=== PATIENT | female | born 1940 | race Caucasian/White ===

== ENCOUNTER → 2016-07-31 | Outpatient (CLI) | payer MEDICARE, BC ==
[~2016-07-31] MED LIST: ASPIRIN LO-DOSE81 MG PO; AVAPRO300 MG PO; BACTROBAN 2% OI22 GM TOP; CALCIUM 600 +1 EAC6 PO; DULCOLAX STOOL100 MG PO; FOSAMAX70 MG PO; KEFLEX500 MG PO; NEURONTIN800 MG PO; PRESERVISION A1 EACH PO; ULTRAM50 MG PO; VITAMIN C WIT1000 MG PO
== END | disposition disaster alternative care site (69) ==
LOC: GRAD 14:25
DX: M51.04 Intervertebral disc disorders with myelopathy, thoracic region (principal); J43.9 Emphysema, unspecified; M40.204 Unspecified kyphosis, thoracic region

== ENCOUNTER 2016-08-16 13:00 | Inpatient (IN) | payer MEDICARE, BC ==
[~2016-08-16] VITALS: Ht 157.5 cm; Wt 53.2 kg
--- NOTE | ~2016-08-16 | DS ---
PATIENT'S NAME: TANESHA LEI [facility] AGE: 76 Y [address] ROOM: [place] [address] LOCATION: GPCU ADMIT DATE: 08/23/2016 Discharge Summary DISCHARGE DATE: 08/31/2016 FAMILY PHYSICIAN: Duncan Cortez MD ATTENDING PHYSICIAN: Juan Alberto Villa ADMIT DIAGNOSES: 1. Thoracic spinal stenosis. 2. Thoracic herniated nucleus pulposus. 3. Thoracic myelomalacia. 4. Myelopathy. 5. Thoracic degenerative disk disease. 6. Thoracic pain. 7. Hypertension. 8. Osteoporosis. 9. Gait instability (ataxia). 10. Chronic pain. DISCHARGE DIAGNOSES: 1. Thoracic spinal stenosis. 2. Thoracic herniated nucleus pulposus. 3. Thoracic myelomalacia. 4. Myelopathy. 5. Thoracic degenerative disk disease. 6. Thoracic pain. 7. Hypertension. 8. Osteoporosis. 9. Gait instability (ataxia). 10. Chronic pain. PROCEDURES PERFORMED: Anteroposterior thoracic fusion with interbody bone graft, anterior plate fixation with posterior pedicle screw instrumentation from T1-T4 with posterolateral fusion. HISTORY OF PRESENT ILLNESS: Tanesha is a 76-year-old female, who has been followed in our clinic for conservative treatment of multiple pain issues related to her neck, mid back, and her lumbar spine. She had previously undergone lumbar spine operations. There was noted thoracic herniation from years ago, that was being followed conservatively. The patient began to experience ataxic gait and other myelopathic changes on her exam. Her neck was re-imaged, which showed increased size in thoracic disk herniation at T2- 3, which was resulting in critically severe compression of her spinal cord with myelomalacia, and thus, the resultant myelopathic changes on her exam. At which point, it was discussed with the patient necessity to move forward with thoracic decompression and fusion at that area to prevent any further PATIENT'S NAME: TANESHA LEI [facility] AGE: 76 Y [address] ROOM: [place] [address] LOCATION: GPCU ADMIT DATE: 08/23/2016 Discharge Summary DISCHARGE DATE: 08/31/2016 FAMILY PHYSICIAN: Duncan Cortez MD ATTENDING PHYSICIAN: Juan Alberto Villa deterioration in her neurologic status including the myelopathic changes. The patient understood and consented to proceed with the surgery. This was done in conjunction with Dr. Stevens for access anteriorly through the mediastinum. HOSPITAL COURSE: The patient was admitted through same-day surgery, underwent the above-stated procedure, was recovered in the PACU. At which point, she showed quick deterioration in her health status. Given the 4 L blood loss, she was given blood transfusion with platelets, FFP among other clotting and blood products. The patient did show improvement and eventually was transferred to PCU in stable condition. During her hospital stay, she has not required further blood transfusions. There were issues with pain control throughout her hospital stay as well as her ability to participate in physical therapy as following surgery she noted significant weakness in her right leg. She has full function, strength in her left leg, which remained fairly unchanged throughout her hospital course. She had no activity of her hip or quad. She had minimal activity in her tibialis anterior, EHL, and gastrocnemius graded at 1/5, 2/5, and 2/5 respectively. The patient was initially treated with IV pain medication and narcotics. She was eventually transitioned to just tramadol and eventually did require fentanyl pain patch 25 mcg, which did eventually provide adequate pain relief. The patient's Jj catheter was removed on postop day one. She was not closely monitored in her voiding and went almost 24 hours without void at which point, Jj catheter was replaced, and a consult was made with Urology. The patient eventually underwent removal of her Jj with postvoid trial. She did do well and eventually was without Jj catheter and voiding on her own. She was able to pass gas and have minimal bowel movements while inpatient. Her drain was removed on postop day 2 as drainage was minimal. Her incisions were all clean, dry, and intact with no signs of infection. Upon discharge, her hemoglobin and hematocrit were stable. She did have again initial episode of delirium, most likely secondary to the significant blood loss as well as narcotics. Upon stabilization of her blood levels as well as changing her pain medication, the postop delirium resolved. She was afebrile throughout hospital course. Vital signs were essentially stable. We initially were planning on the patient to be transferred to [facility], but because of the patient's pain as well as limited mobility with her right leg weakness, she was not able to participate in two hours or greater of physical therapy, at which point, Swing Bed in [place] was initiated. She has been cleared by the Hospitalist as well as cardiothoracic surgeon for transfer today on 08/31/2016. We will address next week regarding postop followup with Dr. Villa. I did discuss this with the patient and her daughter. DISCHARGE INSTRUCTIONS: The patient is discharged to [facility] with postop restrictions of no lifting greater than 5 pounds, use of her brace at all times, care for incision and dressings. She will continue on her tramadol and her 25 mcg fentanyl patch. PATIENT'S NAME: TANESHA LEI [facility] AGE: 76 Y [address] ROOM: [place] [address] [facility]: [facility] ADMIT DATE: 08/23/2016 Discharge Summary DISCHARGE DATE: 08/31/2016 FAMILY PHYSICIAN: Duncan Cortez MD ATTENDING PHYSICIAN: Juan Alberto Villa MARQUIS FOLEY FOR JUAN ALBERTO VILLA MD JTF/modl /[id number] d: 09/01/16 0356 t: 09/19/16 1114, DISCHARGE SUMMARY
--- NOTE | ~2016-08-16 | OR ---
PATIENT'S NAME: QUIQUE [facility] AGE: 76 Y [address] ROOM: [place] [address] LOCATION: GICU ADMIT DATE: 08/23/2016 OR/Procedure Report DISCHARGE DATE: FAMILY PHYSICIAN: Duncan Cortez MD ATTENDING PHYSICIAN: Cedrick Villa SURGEON: Cedrick Villa MD ASSISTANT OFFSET PRESS OPERATOR: DATE OF PROCEDURE: 08/23/2016 PREOPERATIVE DIAGNOSES: 1. Thoracic degenerative disk disease. 2. Thoracic herniated disk. 3. Thoracic stenosis. 4. Thoracic myelopathy. 5. Thoracic radiculopathy. POSTOPERATIVE DIAGNOSES: 1. Thoracic degenerative disk disease. 2. Thoracic herniated disk. 3. Thoracic stenosis. 4. Thoracic myelopathy. 5. Thoracic radiculopathy. PROCEDURES PERFORMED: 1. Anterior thoracic decompression with partial corpectomy of T2 and T3 with disk excision and spinal cord decompression. 2. Anterior thoracic fusion, T2-3. 3. Application of allograft structural bone, T2-3 interspace. 4. Application of anterior plate screw instrumentation, T2-T3. 5. Posterior thoracic fusion, T1-T2. 6. Posterior thoracic fusion, T2-T3. 7. Posterior thoracic fusion, T3-T4. 8. Application of segmental pedicle screw fixation, T1 and T4 bilateral rods. CO-SURGEON: Pito Stevens DO, for the anterior aspect. TECHNICAL RESEARCH SCIENTIST: MARQUIS Del Rosario ANESTHESIA: General. ESTIMATED BLOOD LOSS: 4200 mL. COMPLICATIONS: None. PATIENT'S NAME: LEI, [facility] AGE: 76 Y [address] ROOM: [id number] [place] [address] LOCATION: [facility] ADMIT DATE: 08/23/2016 OR/Procedure Report DISCHARGE DATE: FAMILY PHYSICIAN: Duncan Cortez MD ATTENDING PHYSICIAN: Cedrick Villa SPECIMENS: None. FINDINGS: Huge calcified herniated disk with severe stenosis, T2-T3. INSTRUMENTATION USED: Homer Tempus anterior plate screw construct and Globus CREO pedicle screw fixation posteriorly. OPERATIVE INDICATIONS: The patient is a 76-year-old female who I have followed for symptomatic thoracic herniation and severe stenosis, resulting in progressive myelopathy and weakness. The patient was offered surgery from anterior and possible posterior approach to decompress and stabilize the area. After details, risks, benefits, and options were explained, she freely consented to surgery. OPERATIVE NARRATIVE: After the patient was correctly identified, operative site initialed, she was taken back to the operating room, placed in the supine position. After general anesthesia was induced, she was placed in a chin coon traction with all bony prominences well-padded and protected. She received IV antibiotics prior to surgery. The anterior neck and chest wall were prepped and draped in usual sterile fashion. Dr. Stevens provided the sternotomy and anterior exposure through the transthoracic region into the anterior thoracic spine. After exposure was completed, a spinal needle was placed into the disk space and verified on fluoroscopy at T2-3. This area was marked and self-retaining tractors were placed in the wound. Partial corpectomy was performed of the inferior aspect of T2 and the superior aspect of T3. A high-speed bur and Kerrisons were used to debride bone and disk tissue back to the posterior ligament. The large posterior herniated disk that was calcified was thinned with a high-speed bur and then teased free with a nerve hook and grasped and removed with micropituitaries and 1-mm tip Kerrisons. After decompression was complete, the arm was brought in for scan to verify decompression. There was osteophyte present in the left posterolateral aspect of the disk space up under the inferior part of T2. This was identified, teased free, and then removed. The area was completely decompressed at this point. Gelfoam was packed in the epidural space temporarily for hemostasis. Next, the end plates were smoothed and prepared for fusion. A size 12 cortical cancellous bone graft was packed with DBM in the central part and then impacted into the intervertebral space where the partial corpectomy was performed. The weights were removed from traction and a 1-level plate was held in position, 14-mm screws placed in T2 and T3. At this point, the wound was irrigated and dried. The screws were locked to the plate and verified in its position, AP and lateral fluoroscopy. Dr. Stevens returned to close the wound. After the wound closure was complete, the patient was then carefully placed into the prone position on the Adria frame of the Maynor table. The back was prepped and draped in usual sterile fashion. She was re-dosed with antibiotics. 10 mL of 0.25% Marcaine PATIENT'S NAME: LEI, FOSTINE K [facility] AGE: 76 Y [address] ROOM: [address] [address] LOCATION: [facility] ADMIT DATE: 08/23/2016 OR/Procedure Report DISCHARGE DATE: FAMILY PHYSICIAN: Duncan Cortez MD ATTENDING PHYSICIAN: Cedrick Villa epinephrine was injected in line with the proposed incision. A midline incision was made over the upper thoracic and lower cervical spine. Subperiosteal dissection was performed to expose posterior elements. The reference frame for the stealth navigation was attached to the spinous process and the O-arm was brought in for navigation scan. Under Stealth navigation, pedicle screws were placed at T1, T2, T3, and T4 on the right and T1, T3, and T4 on the left. All pedicle screws had adequate purchase. Confirmation scan was done to verify placement of the screws. Rods were reduced to the screws and set caps placed and tightened to the appropriate torque. High-speed bur was used to decorticate the lamina and facet tissue on each side of the spine. Actifuse and demineralized bone matrix were packed bridging the decorticated bone for the posterior fusion. The wound was irrigated and dried. 1 g vancomycin power was divided between the superficial and deep tissues. The fascia was closed with interrupted #1 Vicryl suture, 0 Vicryl in subcutaneous tissue, and a 3-0 Vicryl in the skin. Sterile dressing was applied, and the patient was awakened from anesthesia and taken to recovery room in stable condition. MD CHEL IRVING/modl /[id number] d: 08/24/16 0023 t: 09/11/16 0801, OPERATIVE SUMMARY
--- NOTE | ~2016-08-16 | CON ---
PATIENT'S NAME: TANESHA LEI [facility] AGE: 76 Y [address] ROOM: [place] [address] LOCATION: GPCU ADMIT DATE: 08/23/2016 Consultation DISCHARGE DATE: FAMILY PHYSICIAN: Duncan Cortez MD ATTENDING PHYSICIAN: Cedrick Villa DATE OF CONSULTATION: 08/26/2016 REFERRING PHYSICIAN: Pito Stevens DO Urology Clinic Visit/Consultation Note CHIEF COMPLAINT/REASON FOR CONSULTATION: Urinary retention. HISTORY OF PRESENT ILLNESS: The patient is a very pleasant 76-year-old female with history of back pain for which she ultimately underwent a thoracic decompression and T2 to T3 vertebral fusion with Dr. Villa on 08/24/2016. She has had some difficulty with postoperative urinary retention requiring replacement of indwelling Jj catheter. She denies any gross hematuria or dysuria. Prior to surgery, the patient had already been having some difficulty with urinary hesitancy and potentially some incomplete bladder emptying. She also reports history of chronic narcotic requirements with resultant constipation. She denies any history of urinary incontinence or difficulty with urinary tract infections. Prior to surgery, she denied any nocturia but did have some urgency. The patient has no further questions or concerns at this time. PAST MEDICAL HISTORY: 1. Hypertension. 2. Degenerative disk disease. 3. Lumbar radiculopathy and thoracic radiculopathy. 4. Chronic pain. 5. Osteoporosis. 6. Osteoarthritis. 7. Right leg weakness. 8. Chronic gait instability. PAST SURGICAL HISTORY: 1. Lumbar fusion. 2. Thoracic fusion. 3. Right total hip replacement. 4. Breast biopsy. 5. Excision of skin carcinoma on her nose. 6. Appendectomy. PATIENT'S NAME: TANESHA LEI [facility] AGE: 76 Y [address] ROOM: [place] [address] LOCATION: GPCU ADMIT DATE: 08/23/2016 Consultation DISCHARGE DATE: FAMILY PHYSICIAN: Duncan Cortez MD ATTENDING PHYSICIAN: Cedrick Villa SOCIAL HISTORY: The patient is and has a remote history of smoking about 20 pack year history. She does not have any history of significant alcohol use. FAMILY HISTORY: No reported family history of genitourinary abnormalities. ALLERGIES: PENICILLIN. MEDICATIONS: See hospitalization medication reconciliation. REVIEW OF SYSTEMS: A full 10 plus point review of systems was performed with pertinent positive and negative findings including in History of Present Illness. All other systems were reviewed and are otherwise negative. PHYSICAL EXAMINATION: VITAL SIGNS: Temperature is 98.6 Fahrenheit, pulse 98, blood pressure 165/80, respiratory rate 20, and oxygen saturation 98% on 2 L. CONSTITUTIONAL: No acute distress. Hemodynamically stable. HEENT: Extraocular muscles intact. Mucous membranes moist. No drainage per ears or nose. CARDIAC: Good peripheral perfusion. No tachycardia. RESPIRATORY: No audible wheezing or stridor, and respirations do not appear labored. ABDOMEN: Soft, nontender, nondistended. MUSCULOSKELETAL: Moves all extremities. NEUROLOGIC: No focal deficits noted. HEMATOLOGIC: No bruising or active sites of bleeding. PSYCHIATRIC: Normal affect and answers questions appropriately. IMPRESSION: Urinary retention. PLAN: I had a long discussion today with the patient regarding her recent difficulties with urinary retention. I discussed that the etiology of her urinary retention may be multifactorial. I also discussed with the patient that it is not completely uncommon for a woman to have some difficulties with urinary retention following surgery, but regardless this is typically transient and usually does resolve with time. I also discussed with her that unfortunately there is no medication that she can take to just go ahead and fix this problem, but we will plan to give her another trial of void in 1 week PATIENT'S NAME: TANESHA LEI [facility] AGE: 76 Y [address] ROOM: [place] [address] LOCATION: GPCU ADMIT DATE: 08/23/2016 Consultation DISCHARGE DATE: FAMILY PHYSICIAN: Duncan Cortez MD ATTENDING PHYSICIAN: Cedrick Villa from now with catheter removal on 09/01/2016 at 5:00 a.m. We also discussed alternative options for patients who become more long-term catheter dependent including possible learning how to perform self catheterization, but hopefully we will not need to have her do this. If she does have shelter difficulty with urinary retention, then she would be a candidate for further evaluation with cystoscopy and urodynamics. At this point, no other evaluation indicated at this time. Please do not hesitate to call with any questions or concerns or if the patient fails another trial of void in 1 week from now. The patient's questions and concerns were addressed and she has no further at this time. MD ANTONI PARKER/rudy /[id number] d: 08/26/16 1904 t: 08/27/16 1553, CONSULTATION REPORT
--- NOTE | ~2016-08-16 | OR ---
PATIENT'S NAME: TANESHA LUNA [facility] AGE: 76 Y [address] [id number] [address] LOCATION: GICU ADMIT DATE: 08/23/2016 OR/Procedure Report DISCHARGE DATE: FAMILY PHYSICIAN: Duncan Cortez MD ATTENDING PHYSICIAN: Cedrick Villa SURGEON: Saurav Bal MD BREAD DOUGH MIXER: DATE OF PROCEDURE: 08/23/2016 PROCEDURE: The following lines were placed during the patient's anterior- posterior T2-3 spinal fusion. INDICATIONS: Tanehsa Luna is a 76-year-old lady with a history of COPD and hypertension, who presents today for an anterior fixation and partial corpectomy of thoracic vertebrae, specifically the T2-3 interspace where she has a very large herniated disk. An anterior approach has planned which involves median sternotomy with division of the sternum, the manubrium, as well as thoracic surgical approach. She will require a central line for provision of vasoactives, some blood, as well as monitoring of CVP. An arterial line will be placed for frequent blood gas sampling and tight control of blood pressure. Detailed discussion of risks and benefits was undertaken with the patient and her daughter in the preop holding area. She agreed to the plan as stated and was taken to OR #9 where she underwent an uneventful induction of general anesthesia. She was intubated with video laryngoscope with care not to move her neck. This was done without problem on the 1st pass. At that point, Matthew Dukes, placed an arterial line in the patient's left radial artery and procedure #[address] from oh[address] DESCRIPTION OF PROCEDURE: With the patient in Trendelenburg position, I gloved and gowned, the area overlying her left subclavian area was sterilely prepped. Maximal barrier was placed. An 18-gauge needle was inserted at the junction of the middle and distal thirds of the clavicle and inserted towards the sternum. On the 2nd pass, dark venous blood was obtained. The wire threaded without difficulty, with just a little bit of ectopy to let me know that it was in the cardiac region. A dilator was passed and a 20 cm 8.5- Japanese quad lumen was placed over the wire to 18 cm and was sutured in place with 2-0 silk. The wire was withdrawn, all lumens flushed and jerome freely. CVP was 9 on transduction. The assemblage was covered with sterile Tegaderm. Later in the procedure, during the C-arming of the patient's chest, the position of the line was checked, no evidence of pneumothorax, it was approximately in the middle to bottom part of the superior vena cava, so it was indeed correctly placed. Thank you very much for allowing me to participate in Mrs. Luna's care. If you have any questions regarding this line, please do not hesitate to call. PATIENT'S NAME: TANESHA LUNA [facility] AGE: 76 Y [address] ROOM: [place] [address] LOCATION: [facility] ADMIT DATE: 08/23/2016 OR/Procedure Report DISCHARGE DATE: FAMILY PHYSICIAN: Duncan Cortez MD ATTENDING PHYSICIAN: Cedrick Villa MD LATA CARDOSO/senal /[id number] d: 08/24/16221 t: 08/28/16 1240, OPERATIVE SUMMARY
--- NOTE | ~2016-08-16 | CON ---
PATIENT'S NAME: TANESHA LEI [facility] AGE: 76 Y [address] ROOM: [place] [address] LOCATION: GICU ADMIT DATE: 08/23/2016 Consultation DISCHARGE DATE: FAMILY PHYSICIAN: Duncan Cortez MD ATTENDING PHYSICIAN: Cedrick Villa DATE OF CONSULTATION: 08/24/2016 REFERRING PHYSICIAN: Pito Stevens DO CHIEF COMPLAINT: Request for medical management in the setting of thoracic back surgery. HISTORY OF PRESENTING ILLNESS: This 76-year-old white female with previous history of extensive degenerative disk disease and spinal stenosis with radiculopathy as well as hypertension, was admitted to [facility] yesterday by Dr. Villa to undergo elective thoracic decompression and vertebral fusion at T2-3. The procedure involved an anterior approach and required thoracic exposure by the Cardiothoracic Team. The procedure itself was complicated only by blood loss. She did have PRBC transfusion postoperatively. Postoperatively, she was transitioned to the intensive care unit. She has had some intermittent episodes of confusion and agitation. I have been requested to help with medical management. On my arrival, she is confused and a little bit agitated. She had refused to take some of her routine medications just before my arrival, and has been pulling at her oxygen tubing and trying to remove her thoracic brace. She does redirect, but expresses some paranoid type thinking stating that "you're all in on it." She denies significant amount of pain currently, but does complain of shortness of breath. She has had some significant oxygen demands, but that has been decreasing. She received some diuresis over the course of the night and has had some good results with that. She denies headache, denies nausea, denies chest pain or abdominal pain, but does complain of some restlessness in her legs. PAST MEDICAL HISTORY: ALLERGIES: PENICILLIN CAUSES A RASH. ILLNESSES: 1. Essential hypertension. 2. Cervical, thoracic, and lumbar degenerative disk disease with multiple levels of spinal stenosis. PATIENT'S NAME: TANESHA LEI [facility] AGE: 76 Y [address] ROOM: [place] [address] LOCATION: GICU ADMIT DATE: 08/23/2016 Consultation DISCHARGE DATE: FAMILY PHYSICIAN: Duncan Cortez MD ATTENDING PHYSICIAN: Cedrick Villa 3. Lumbar radiculopathy. 4. Thoracic radiculopathy. 5. Chronic pain. 6. Osteoporosis. 7. Osteoarthritis, generalized. 8. Right leg weakness. 9. Chronic gait instability. CURRENT MEDICATIONS: 1. Valsartan 160 mg p.o. daily. 2. Bactroban applied to the left leg topically t.i.d. 3. Gabapentin 800 mg p.o. t.i.d. 4. Multivitamin daily. 5. Colace 240 mg p.o. b.i.d. 6. Dilaudid per WAXED BAG MACHINE OPERATOR, demand only. 7. Flexeril 5 mg p.o. q.8 hours p.r.n. muscle spasm. 8. Milk of magnesia 30 mL p.o. daily p.r.n. 9. Benadryl 25-50 mg p.o. q.6 hours p.r.n. pruritus. 10. Oxycodone 5-10 mg p.o. q.4 hours p.r.n. pain. 11. Zofran 4 mg IV q.6 hours p.r.n. nausea. 12. Morphine 2-4 mg IV q.2 hours p.r.n. breakthrough pain. Clindamycin 450 mg IV q.8 hours. 13. Dexamethasone 6 mg IV q.8 hours. 14. Acetaminophen 650 mg IV q.6 hours p.r.n. pain or fever. FAMILY HISTORY: Significant for heart disease in her father. SOCIAL HISTORY: She is and lives in [place]. She has a daughter who lives nearby and provides good social support. She has a distant past history of smoking tobacco, about 20 pack years. No significant history of alcohol use. REVIEW OF SYSTEMS: As per HPI. All other organ systems are reviewed and are negative. OBJECTIVE: VITAL SIGNS: Temperature 97.7, pulse 101, respirations 12, blood pressure 145/74. Weight is 61 kilos that is up from 51 kilos on August 21. GENERAL: She is frail, anxious, marginally cooperative lying in the chair in mild distress. SKIN: Supple, pink, warm, and dry. There are no rashes. The wounds overlying the chest are clean and intact. There is no drainage. HEENT: Otherwise, normocephalic. Sclerae nonicteric. Pupils are equal and round, slow to react to light. Extraocular movements appear intact. Nasal PATIENT'S NAME: TANESHA LEI [facility] AGE: 76 Y [address] ROOM: [id number] [place], [place] [address] LOCATION: GICU ADMIT DATE: 08/23/2016 Consultation DISCHARGE DATE: FAMILY PHYSICIAN: Duncan Cortez MD ATTENDING PHYSICIAN: Cedrick Villa turbinates normal in appearance. Oropharynx is clear. Mucous membranes are pink and moist. NECK: Appears benign. There are no lesions. The cervicothoracic brace is in place. No obvious JVD. No thyromegaly. CHEST: Chest wall is otherwise symmetrical. HEART: Distant but regular. No murmurs. LUNGS: Diminished at the bases bilaterally with some basilar crackles. ABDOMEN: Soft and protuberant. Nontender. Bowel sounds present, but diminished. No masses or hepatosplenomegaly. AND RECTAL: Not done. EXTREMITIES: Display no clubbing, cyanosis, or edema. NEUROLOGICAL: Sensation appears diminished over the right lower extremity. Cranial nerves 2 through 12 appear grossly intact. Strength is 3 to 4/5 in the right lower extremity, 4 to 5/5 in the left lower extremity and bilateral upper extremities. DTRs are 0 to 1+ on the left and 1+ on the right. Gait is not observed. LABORATORY AND X-RAY DATA: CBC showed a white blood cell count 7.2, hemoglobin is 10.5, hematocrit 31.5, platelets 119. PT and PTT 11.2 and 29 respectively with an INR of 1.07. Fibrinogen was within normal limits at 3:23 this morning. ASSESSMENT AND PLAN: 1. Acute encephalopathy, toxic and metabolic etiologies. Suspect medication effect primarily. She could be experiencing steroid induced psychosis, but also and equally is likely an adverse reaction to opioid analgesics and/or anesthesia. She apparently has a history of this. We will try a dose of Seroquel this afternoon to help manage her agitative symptoms and as she is a little combative with cares and pulling at her equipment. We will hold off on scheduling any doses and monitor her response to that. Try to minimize opioid therapy and avoid confrontational interactions. 2. Acute hypoxic respiratory failure, multifactorial. Suspect restrictive causes secondary to surgery as well as some evidence of fluid overload. Agree with diuresis. Her oxygen demands are improving. We will try to encourage good pulmonary hygiene and consider repeated attempt at diuresis later today. She is up 10 kg. 3. Acute blood loss anemia, postoperatively status post PRBC transfusion, stable. She is hemodynamically stable. There is no evidence of any significant ongoing blood loss. We will follow hemoglobin semi-serially. Repeat a CBC again later today. 4. Thrombocytopenia. Fibrinogen is normal now. We will repeat a CBC at 1 o'clock today and follow up with that when the results are known. 5. Essential hypertension, adequately controlled. We will monitor the trend and make adjustments if necessary. 6. Lumbar radiculopathy. We will continue to manage symptomatically. She PATIENT'S NAME: TANESHA LEI [facility] AGE: 76 Y [address] ROOM: [id number] [place] [id number] LOCATION: [facility] ADMIT DATE: 08/23/2016 Consultation DISCHARGE DATE: FAMILY PHYSICIAN: Duncan Cortez MD ATTENDING PHYSICIAN: Cedrick Villa does not appear to be in too much pain right now and would favor minimizing the opioids. We will reduce the gabapentin slightly to help minimize the pharmacologic burden. This can be easily increased if her pain is refractory. 7. Right lower extremity weakness with chronic gait instability. Plan to engage in physical therapy, occupational therapy, and restorative cares. 8. Deep venous thrombosis prophylaxis. We will utilize pneumatic compression devices, but avoid heparin or Lovenox in light of thrombocytopenia and recent surgery. MD BARNEY MURCIA/senal /[id number] d: 08/24/161657 t: 08/24/161718, CONSULTATION REPORT
--- NOTE | ~2016-08-16 | OR ---
PATIENT'S NAME: TANESHA LUNA [facility] AGE: 76 Y [address] ROOM: [address] [address] LOCATION: GPCU ADMIT DATE: 08/23/2016 OR/Procedure Report DISCHARGE DATE: FAMILY PHYSICIAN: Duncan Cortez MD ATTENDING PHYSICIAN: Cedrick Villa SURGEON: Pito Stevens DO CRABBING MACHINE OPERATOR: driller's assistant: DWAYNE Dsouza. DATE OF PROCEDURE: 08/23/2016 PREOPERATIVE DIAGNOSES: 1. Thoracic degenerative disk disease. 2. Thoracic herniated disk. 3. Thoracic stenosis. 4. Thoracic myelopathy. 5. Thoracic radiculopathy. POSTOPERATIVE DIAGNOSES: 1. Thoracic degenerative disk disease. 2. Thoracic herniated disk. 3. Thoracic stenosis. 4. Thoracic myelopathy. 5. Thoracic radiculopathy. PROCEDURE: Exposure of T2-T3 via division of the manubrium and dissection of the soft tissues to the T2-T3 interspace. CO-SURGEONS: Cedrick Villa M.D. HISTORY: Mrs. Luna is a 76-year-old white female with the above-noted diagnosis. She has been brought to the operative suite today for her surgical repair and incision was carried out on the right sternocleidomastoid approximately 2 cm and extended down to just below the angle of Mo on the sternum. Soft tissues were divided with electrocautery and electrocautery were used for hemostasis. The manubrium was divided with a sternal saw and then lateral cuts were made into the each hemisternum just below the angle of Mo. Tuffier retractor was placed. We continued dissection identifying the aortic arch and the innominate vein. The innominate vein was circumferentially dissected and retracted out of the way utilizing vessel loops. The brachycephalic artery and left carotid artery were also dissected circumferentially and retracted as needed again with vessel loops. The trachea was identified and retracted laterally and then we identified the thoracic interspaces for a soft-tissue dissection was completed. Dr. Villa then completed his procedure as dictated separately by him. We then copiously irrigated the space, remove vessel loops, approximated the manubrium with a PATIENT'S NAME: TANESHA LUNA [facility] AGE: 76 Y [address] ROOM: [id number] [place], [place] [address] [facility] ADMIT DATE: 08/23/2016 OR/Procedure Report DISCHARGE DATE: FAMILY PHYSICIAN: Duncan Cortez MD ATTENDING PHYSICIAN: Cedrick Villa single zip fix and then utilize two sternal plates to further fix the manubrium and the sternum. Once this was completed, a flat 10-Sammarinese Omega drain was placed. An incision was closed in layered fashion with 0 Vicryl,, 2- 0 Vicryl, and 4-0 Monocryl. The patient tolerated the procedure well and was returned to a prone position for the completion of her procedure. DO CONNIE MICHAUD/modl /[id number] d: 08/28/16 1513 t: 08/29/16 1013, OPERATIVE SUMMARY
--- NOTE | ~2016-08-16 | DS ---
PATIENT'S NAME: TANESHA LEI [facility] AGE: 76 Y [address] ROOM: [address] [place] [address] LOCATION: GPCU ADMIT DATE: 08/23/2016 Discharge Summary DISCHARGE DATE: 08/31/2016 FAMILY PHYSICIAN: Duncan Cortez MD ATTENDING PHYSICIAN: Cedrick Villa FINAL DIAGNOSES: 1. Thoracic stenosis with degenerative disk disease, myelomalacia; status post anterior decompression and fusion, T2-T3, and posterior fusion, T1 through T4. 2. Essential hypertension. 3. Acute encephalopathy. 4. Postop expected acute hypoxic respiratory failure. 5. Acute blood loss anemia. 6. Thrombocytopenia. Please see the history and physical dictated by Dr. Villa as well as the consultation provided by Dr. Garza for details of admission. LABORATORY DATA: Sodium on admission 142, most prior to discharge 139; potassium on admission 3.7, the lowest it got was 3.6, most prior to discharge 3.9; BUN on admission was 18, at discharge it was 15; creatinine on admission 0.7, discharge 0.5. Her alkaline phosphatase on admission was 48, AST 56, ALT 13. Phosphorus on August 25 was 1.6. Magnesium on admission 2.3, 2.3 at discharge. CK postop is 1436. ProBNP on August 24 was 2914. Troponin postop was 0.167. White blood cell count on admission was 7.7, discharge 5.8; hemoglobin on admission was 11.8, she got as low as 7.6 on the , she did go back up into the low 10 range, and most prior to discharge is 9.6; platelet count on admission was 33, she ranged between 100 and 115. RADIOLOGY REPORT: Chest x-ray on the did not show any evidence of congestive heart failure and did show some atelectasis. HOSPITAL COURSE: The patient underwent a surgical procedure with Dr. Villa and Dr. Stevens on August 23. This was for significant thoracic stenosis. Please see their op notes for details of the procedure. Postoperatively, she was admitted to the floor. She was noted to be hypotensive, and she did require transfusion with blood and platelets due to her counts. Hospitalist was asked to see her because she did have acute encephalopathy postoperatively. At that time, it was felt it was probably related to anesthesia and pain management. She was given a dose of IV Bumex because of concern of her O2 saturations. She was given a dose of Seroquel. Attempts were made to be aggressive with her respiratory toilet. Postoperatively, she had significant amount of pain. In attempt to try and limit the encephalopathy, Ultram was used for pain. Dr. Chapa was asked to see her for potential transfer to rehab for recovery. On the second hospital day, she PATIENT'S NAME: TANESHA LEI [facility] AGE: 76 Y [address] ROOM: [id number] [place], [place] [address] LOCATION: GPCU ADMIT DATE: 08/23/2016 Discharge Summary DISCHARGE DATE: 08/31/2016 FAMILY PHYSICIAN: Duncan Cortez MD ATTENDING PHYSICIAN: Cedrick Villa did show some improvement. There was concern that she was still volume overloaded, so she is given Bumex. Her kidney function and electrolytes were monitored closely. Respiratory was asked to severity score her. She did develop some cough. She was given Robitussin to help clear her secretions. Her potassium was 3.6, which she was given potassium infusion. She was placed on MiraLAX to try and keep her bowels regular. She did have significant urinary retention. The Jj catheter was placed on August [address] Ibrahim with the recommendations to leave it in through September 01 and do a voiding trial. At that point, if that was unsuccessful, leave the Jj catheter and follow up as an outpatient. She was improving. She was started on DVT prophylaxis on August 27 with Lovenox. She continued to have significant pain issues. A fentanyl patch was added to her regimen. Medications were scheduled in the middle of the night to make sure that she did not wake up to severe pain. She did show gradual improvement. Her oxygen requirements went from 6 L down to 2 L. It was felt, however, that the inpatient rehab requirement of 3 hours of therapy may be too much for her and so we started looking into a swing bed. [facility] did feel that she could be accepted there and was transferred there on the . DISCHARGE INSTRUCTIONS: She is to have a regular diet with ground meat. She is to do weightbearing as tolerated. She could not push, pull, lift with her upper extremities more than 5 pounds. Oxygen at 1 to 2 L to keep her saturations greater than 90%. She is to have PT, OT, and speech therapy. She is to follow up with Dr. Villa in 1 week, Dr. Stevens in 2 to 3 weeks. The instruction is to keep the sternal incision covered with dry gauze and it would help serve as a padding with the brace, and they were to call if there was any redness, warmth, discharge, or swelling of the sternum. Jj catheter was to be removed on September 01 for a voiding trial. She was to wear her cervical-thoracic orthosis, her brace, when she was out of bed. MEDICATIONS: 1. Surfak 240 mg twice daily. 2. Lovenox 40 mg subcu daily. 3. Duragesic patch 25 mcg, change every 72 hours. 4. Neurontin 800 mg 3 times daily. 5. Humibid LA 600 mg twice daily. 6. Theragran 1 tablet twice a day. 7. Bactroban applied to her leg as needed. 8. Oxycodone 5 mg at 0300. 9. MiraLAX 17 g daily, hold for loose stools. 10. Diovan 160 mg daily. 11. DuoNeb nebulize 1 every 6 hours. 12. Flexeril 5 mg every 8 hours for spasm. 13. Benadryl 25 to 50 mg every 6 hours as needed for itching. 14. Mucinex DM 5 mL every 8 hours as needed to clear her secretions. PATIENT'S NAME: TANESHA LEI [facility] AGE: 76 Y [address] ROOM: [place] [address] LOCATION: GPCU ADMIT DATE: 08/23/2016 Discharge Summary DISCHARGE DATE: 08/31/2016 FAMILY PHYSICIAN: Duncan Cortez MD ATTENDING PHYSICIAN: Cedrick Villa 15. Milk of magnesia 30 mL daily for constipation. 16. Morphine 2 to 4 mg IV for severe pain. 17. Zofran 4 mg IV q.6 hours p.r.n. nausea. 18. Ultram 50 mg 3 times daily for pain. 19. Fosamax 70 mg every 7 days. 20. Roxicodone 5 to 10 mg every 4 hours as needed for pain. 21. Albuterol inhaled every 4 hours as needed for shortness of breath or cough. 22. PreserVision 1 tablet twice daily. 23. Calcium with D twice daily. 24. Aspirin 81 mg daily. 25. Vitamin C 1000 mg daily. 26. Keflex 2 g one time 30 minutes before dental procedures. OVERALL PROGNOSIS: At discharge is fair. This was discussed in depth with the patient, her daughter. MC TRUJILLO MD LAW/modl /[id number] CC: DO Cedrick Clayton MD d: 09/01/16 0048 t: 09/08/16 1921, DISCHARGE SUMMARY
--- NOTE | ~2016-08-16 | CON ---
PATIENT'S NAME: TANESHA LEI [facility] AGE: 76 Y [address] ROOM: [address] [place], [place] [address] LOCATION: GPCU ADMIT DATE: 08/23/2016 Consultation DISCHARGE DATE: FAMILY PHYSICIAN: Duncan Cortez MD ATTENDING PHYSICIAN: Cedrick Vlila REFERRING PHYSICIAN: Pito Stevens, This is a consult for Dr. Villa. HISTORY OF PRESENT ILLNESS: This 76-year-old lady is referred for rehab GIRP evaluation. She has extensive thoracic spine surgery as follows. 1. Anterior thoracic decompression with partial corpectomy of T2 and T3 with disk excision and spinal cord decompression. 2. Anterior T2-T3 fusion. 3. Application of allograft structural bone to 2-3 space. 4. Application of anterior plate screw instrumentation at T2-T3. 5. Posterior thoracic fusion at T1-T2. 6. Posterior thoracic fusion at T2-T3. 7. Posterior thoracic fusion at T3-T4. 8. Application of segmental pedicle screw fixation at T1-T4 bilateral rods on 08/23/2016 to correct extensive degenerative disk disease with spinal stenosis and disk herniation plus radiculopathy with myelopathy. She is at the present time in a cervical-thoracic brace and is on sternal precautions. She had a history of right hip surgery after which she had right footdrop, and she does not use any brace. Also has history of lumbar radiculopathy, osteoporosis. She is at the present time alert with IV line and a Jj catheter and stated that she is in severe pain. PHYSICAL EXAMINATION: Vitals are as follows. GENERAL: She is alert, oriented, following instructions well, able to comprehend and express. Her voice is clear. NEUROLOGICAL: Cranial nerves 2 through 12 within normal limits. However, she has marked difficulty moving her bilateral lower extremities especially right lower extremity. At the present time, deep tendon reflexes are slightly brisk. VITAL SIGNS: Blood pressure 151/68, temperature 98.4, pulse 89, respirations 14-16, she is 5 feet 2 inches tall, and weighs 60.9 kg. EXTREMITIES: She has practically no dorsiflexion on the right lower extremity. Muscle strength on the right lower extremity is at best about 2+/5. Deep tendon reflexes are weak throughout. PATIENT'S NAME: TANESHA LEI [facility] AGE: 76 Y [address] ROOM: [address] [place] [address] [facility] AD[facility] DATE: 08/23/2016 Consultation DISCHARGE DATE: FAMILY PHYSICIAN: Duncan Cortez MD ATTENDING PHYSICIAN: Cedrick Villa MEDICATIONS: She is on the following medications: 1. Ultram. 2. Neurontin. 3. Diovan. 4. Bactrim ointment. 5. Multivitamin. 6. Surfak. 7. Dilaudid. 8. Flexeril. 9. MOM. 10. Benadryl. 11. Oxycodone hydrochloride. 12. Zofran. 13. Dextrose 5%. 14. NaCl 0.9%. 15. Clindamycin. 16. Decadron. 17. Bumex. 18. Tylenol. 19. Seroquel. 20. Gabapentin. ASSESSMENT AND PLAN: I will continue her on PT, OT already initiated. I will brace her leg as needed on the ankle and will probably need ankle-foot orthosis down the line. However, I feel this lady will need intensive rehab 3 to 4 weeks. When she is stable, I will be happy to take her over. Thank you for this referral. All the above was explained to her and her daughter. They verbalized understanding. LINDA IBARRA MD WMGo/modl /[id number] d: 08/25/162058 t: 09/04/16 1539, CONSULTATION REPORT
[2016-08-21] MEDS ORDERED: FOSAMAX70 MG PO (15:16)
[2016-08-21] MEDS ORDERED: AVAPRO300 MG PO (15:17)
[2016-08-21] MEDS ORDERED: NEURONTIN800 MG PO (15:17)
[2016-08-21] MEDS ORDERED: PRESERVISION A1 EACH PO (15:18)
[2016-08-21] MEDS ORDERED: ASPIRIN LO-DOSE81 MG PO (15:20)
[2016-08-21] MEDS ORDERED: CALCIUM 600 +1 EAC6 PO (15:20)
[2016-08-21] MEDS ORDERED: DULCOLAX STOOL100 MG PO (15:21)
[2016-08-21] MEDS ORDERED: VITAMIN C WIT1000 MG PO (15:21)
[2016-08-21] MEDS ORDERED: ULTRAM50 MG PO (15:22)
[2016-08-21] MEDS ORDERED: KEFLEX500 MG PO (15:23)
[2016-08-21] MEDS ORDERED: BACTROBAN 2% OI22 GM TOP (15:24)
[2016-08-23 15:34] LABS: PCO2 45 mmHg (35-45)
[2016-08-23 15:36] LABS: BICARBONATE 19.6 mmol/L (18.0-23.0); PO2 388 mmHg (80-90); POTASSIUM 4.6 mEq/L (3.7-5.1); SODIUM 139 mEq/L (135-145)
[2016-08-23 15:37] LABS: BICARBONATE 21.8 mmol/L (18.0-23.0); PCO2 50 mmHg (35-45); PO2 369 mmHg (80-90); SODIUM 142 mEq/L (135-145)
[2016-08-23 15:38] LABS: POTASSIUM 3.7 mEq/L (3.7-5.1)
[2016-08-23 17:37] LABS: HEMOGLOBIN 11.8 g/dL (10.0-15.0)
[2016-08-23 17:46] LABS: ANION GAP 14.1 (10.0-19.0)
[2016-08-23 17:49] LABS: POTASSIUM 5.1 mMol/L (3.7-5.1)
[2016-08-23 18:08] LABS: INR - (THERAPEUTIC) 1.54 (0.92-1.07); PROTIME 16.2 SECONDS (9.8-11.4)
[2016-08-23 18:52] LABS: BICARBONATE 18.4 mmol/L (18.0-23.0); PCO2 44 mmHg (35-45); PO2 419 mmHg (80-90); POTASSIUM 4.4 mEq/L (3.7-5.1); SODIUM 140 mEq/L (135-145)
[2016-08-23 20:24] LABS: HEMATOCRIT 22.9 % (33.0-46.0); HEMOGLOBIN 7.6 g/dL (10.0-15.0)
[2016-08-23 21:06] LABS: HEMATOCRIT 24.5 % (33.0-46.0); IMMATURE GRANULOCYTE # 0.1 K/uL (0.0-0.3); IMMATURE GRANULOCYTE % 0.7 %; LYMPHOCYTE # 0.6 K/uL (0.8-4.0); LYMPHOCYTE % 7.6 %; MCH 33.2 pg (27.0-34.0); MCHC 32.7 gm/dL (32.0-36.5); MCV 101.7 fl (83.0-98.0); MONOCYTE # 0.5 K/uL (0.0-1.0); MONOCYTE % 6.9 %; MPV 9.4 fl (9.4-12.4); NEUTROPHIL # (ANC) 6.5 K/uL (1.8-7.8); NEUTROPHIL % 84.8 %; NRBC % 0 /100WBC (0-0.00); RBC 2.41 M/uL (3.50-5.50); RDW-CV 14.7 % (11.9-14.6); WBC 7.7 K/uL (4.0-11.0)
[2016-08-23 21:13] LABS: PLATELET COUNT 33 K/uL (150-450)
[2016-08-24 00:23] LABS: BASOPHIL % 0.1 %; HEMOGLOBIN 10.1 g/dL (10.0-15.0); IMMATURE GRANULOCYTE % 0.3 %; LYMPHOCYTE # 0.6 K/uL (0.8-4.0); LYMPHOCYTE % 7.8 %; MCV 97.7 fl (83.0-98.0); MONOCYTE # 0.6 K/uL (0.0-1.0); MONOCYTE % 7.6 %; MPV 9.5 fl (9.4-12.4); NEUTROPHIL # (ANC) 6.6 K/uL (1.8-7.8); NEUTROPHIL % 84.2 %; NRBC % 0 /100WBC (0-0.00); RDW-CV 16.2 % (11.9-14.6); WBC 7.8 K/uL (4.0-11.0)
[2016-08-24 00:24] LABS: HEMATOCRIT 30.4 % (33.0-46.0); MCH 32.5 pg (27.0-34.0); MCHC 33.2 gm/dL (32.0-36.5); PLATELET COUNT 113 K/uL (150-450); RBC 3.11 M/uL (3.50-5.50)
[2016-08-24 00:39] LABS: PROTIME 11.2 SECONDS (9.8-11.4)
[2016-08-24 00:40] LABS: INR - (THERAPEUTIC) 1.07 (0.92-1.07)
--- NOTE | 2016-08-24 03:41 | NUR ---
SIGNIFICANT EVENT: PT ADMITTED AT 2250 FROM PACU FOLLOWING T2-3 FUSION WITH ANTERIOR STERNOTOMY APPROACH. LABS STABLE AT [address] CARVALHO. PAIN MODERATELY CONTROLLED WITH DILAUDID RN PSYCHIATRIC. VSS T/O SHIFT. FOLLOW UP:
[2016-08-24 06:05] LABS: HEMATOCRIT 31.5 % (33.0-46.0); HEMOGLOBIN 10.5 g/dL (10.0-15.0); IMMATURE GRANULOCYTE % 0.4 %; LYMPHOCYTE # 0.5 K/uL (0.8-4.0); LYMPHOCYTE % 7.1 %; MCH 31.7 pg (27.0-34.0); MCHC 33.3 gm/dL (32.0-36.5); MCV 95.2 fl (83.0-98.0); MONOCYTE # 0.7 K/uL (0.0-1.0); MONOCYTE % 9.8 %; MPV 9.5 fl (9.4-12.4); NEUTROPHIL % 82.7 %; NRBC % 0 /100WBC (0-0.00); PLATELET COUNT 119 K/uL (150-450); RBC 3.31 M/uL (3.50-5.50); RDW-CV 16.6 % (11.9-14.6); WBC 7.2 K/uL (4.0-11.0)
[2016-08-24 12:01] LABS: HEMATOCRIT 30.5 % (33.0-46.0); HEMOGLOBIN 10.2 g/dL (10.0-15.0); MCH 31.6 pg (27.0-34.0); MCHC 33.4 gm/dL (32.0-36.5); MCV 94.4 fl (83.0-98.0); MPV 9.6 fl (9.4-12.4); PLATELET COUNT 108 K/uL (150-450); RBC 3.23 M/uL (3.50-5.50); RDW-CV 16.5 % (11.9-14.6); WBC 8.5 K/uL (4.0-11.0)
[2016-08-24 12:17] LABS: ALBUMIN 3.3 gm/dL (3.5-5.0); ALK PHOS 48 IU/L (33-138); ALT 33 IU/L (12-78); ANION GAP 10.3 (10.0-19.0); AST 56 IU/L (10-40); BLOOD UREA NITROGEN 18 mg/dL (6-24); CHLORIDE 108 mMol/L (96-110); CO2 27 mMol/L (22-32); CREATININE 0.7 mg/dL (0.5-1.1); ESTIMATED GFR (MDRD EQUATION) > 60; POTASSIUM 4.3 mMol/L (3.7-5.1); SODIUM 141 mMol/L (135-145); TOTAL BILIRUBIN 3.1 mg/dL (0.0-1.5); TOTAL PROTEIN 5.4 g/dL (6.0-8.4)
[2016-08-24 12:19] LABS: CALCIUM 6.8 mg/dL (8.5-10.5)
[2016-08-24 12:29] LABS: ABSOLUTE NEUTROPHIL CT (ANC) 7.1 K/uL (1.8-7.8); BANDED NEUTROPHIL # 0.6 K/uL (0.0-0.1); BANDED NEUTROPHILS % 7 %; LYMPHOCYTE # 0.7 K/uL (0.8-4.0); LYMPHOCYTE % 8 %; MONOCYTE # 0.8 K/uL (0.0-1.0); SEGMENTED NEUTROPHIL # 6.5 K/uL (1.8-7.8); SEGMENTED NEUTROPHIL % 76 %
--- NOTE | 2016-08-24 16:22 | NUR ---
Significant Event: PATIENT BECAME IRRITABLE ET SUSPICIOUS, REFUSING MEDS ET CARES. STATED THAT SHE BELIEVES STAFF ARE TRYING TO HARM HER. INTERFERES WITH MEDICAL EQUIPMENT. FAMILY ARRIVED ET PATIENT CALMED DOWN AND BECAME INCREASINGLY COMPLIANT
--- NOTE | 2016-08-25 06:09 | NUR ---
Significant Event: DISORIENTED TO TIME, PLACE AND SITUATION AT TIMES. MAKES CONFUSED STATEMENTS. TURNED Q 2HRS SIDE TO SIDE. GOT PATIENT UP IN THE CHAIR THE LAST OF THE SHIFT. AFEBRILE. VSS ON 2L. ETCO2 MONITOR IN PLACE. PATIENT IS SUCH A SHALLOW MOUTH BREATHER. IV TO L) FA SL. QUAD LUMEN TO THE L) SUBCLAVIAN HAD D5 1/2 NS WITH 20 MEQ KCL AT [facility]KO AND [facility] RUNNING INTO IT. [facility] 0.1 MG DEMAND ONLY. HAD 5 ATTEMPTS AND 5 DELIVERED. ALSO GAVE ULTRAM X2. LAST DOSE WAS AT 0355. PATIENT WAS HAVING A HARD TIME GETTING COMFORTABLE THROUGH OUT THE NIGHT. GAVE FLEXERIL AT 0533. PATIENT IS RESTING COMFORTABLY IN THE CHAIR.HOT REPAIRMAN BRACE ON WHILE PATIENT IS UP. HEART HUGGER ON. ALEXSANDER DRAIN HAD 60 MLS OUT. JEAN WAS D/C AROUND 1730 LAST NIGHT. NO VOID SINCE AND NO URGE TO GO. BLADDER SCANNED PATIENT SHOWED 475. CALLED DOCTOR. NO ORDER FOR STRAIGHT CATH SINCE PATIENT IS NOT UNCOMFORTABLE. ONLY HAD SIPS THROUGHOUT THE SHIFT. DIDNT DRINK MUCH. NO BM THIS SHIFT. Follow up: CONTINUE WITH PLAN OF CARE.
[2016-08-25 13:42] LABS: HEMATOCRIT 33.1 % (33.0-46.0); HEMOGLOBIN 11.1 g/dL (10.0-15.0); IMMATURE GRANULOCYTE # 0.1 K/uL (0.0-0.3); IMMATURE GRANULOCYTE % 0.6 %; LYMPHOCYTE # 0.6 K/uL (0.8-4.0); LYMPHOCYTE % 7.3 %; MCH 31.5 pg (27.0-34.0); MCHC 33.5 gm/dL (32.0-36.5); MONOCYTE # 0.6 K/uL (0.0-1.0); MONOCYTE % 7.4 %; MPV 9.7 fl (9.4-12.4); NEUTROPHIL # (ANC) 7.2 K/uL (1.8-7.8); NEUTROPHIL % 84.7 %; NRBC % 0 /100WBC (0-0.00); PLATELET COUNT 109 K/uL (150-450); RBC 3.52 M/uL (3.50-5.50); RDW-CV 15.8 % (11.9-14.6); WBC 8.5 K/uL (4.0-11.0)
[2016-08-25 14:00] LABS: ALBUMIN 3.1 gm/dL (3.5-5.0); ANION GAP 10.7 (10.0-19.0); BLOOD UREA NITROGEN 20 mg/dL (6-24); CALCIUM 7.5 mg/dL (8.5-10.5); CHLORIDE 103 mMol/L (96-110); CO2 29 mMol/L (22-32); CREATININE 0.5 mg/dL (0.5-1.1); ESTIMATED GFR (MDRD EQUATION) > 60; MAGNESIUM 2.3 mg/dL (1.8-2.6); POTASSIUM 3.7 mMol/L (3.7-5.1); SODIUM 139 mMol/L (135-145)
[2016-08-25 14:01] LABS: PHOSPHORUS 1.6 mg/dL (2.5-4.9)
--- NOTE | 2016-08-25 15:17 | NUR ---
Introduced self and CM role to Naomie and her daughter who was at bedside. Daughter tells me that her mom was living at home alone prior to being in here, but states that when she dismisses from here she will probably need some sort of therapies. Let her know that I had reviewed her mom's chart and I did see that Dr. Chapa from [facility] had rounded and stated that he would accept her when she was medically ready to come to them. I have a VM into [facility] to see if/when they could accept. Daughter also tells me that her mom has spent time at the [facility] and she would be open with her going there if for some reason [facility] wouldn't accept. Prior to coming in, daughter reports that her mom was getting around without and DME and was doing her own medications. She does have a FWW at home to use if she would need to do so. Daughter is staying in the room, offered options such as the [facility] or the [facility] to her if she should want to stay somewhere besides [facility]'s room. Let her know that we would see how the weekend went and follow up with them again early next week. No other questions, needs or concerns. CM to continue to follow and assist.
--- NOTE | 2016-08-25 17:34 | NUR ---
D:Patient had bladder scan at 1000, when Dr. Merlos in to see patient. Had refused to get on bedpan or commode earlier. Bladder scan done, had >600. Striaght cath done, [address] Merlos called and given results. Orders given. At 1630, patient attepmted to void, feeiling strong urge. But unable to void. Bladder scan done, had >900 on scan. Jj inserted per orders, got [address] Ibrahim notified for Urology Consult. P:Urinary consult
--- NOTE | 2016-08-25 17:49 | NUR ---
Significant Event:Patient had to have marcial reinserted at 1630 d/t not being able to void. Did get Bumex 1 mg IV X1. Had 1100 ml urine output. Had Ultram once for c/o back pain. Up in chair twice. Remains on 2L O2. Wearing brace when OOB. Able to stand and pivot for PT, R leg still very weak. Follow up:Urology consult, strengthening
[2016-08-26 03:38] LABS: ANION GAP 8.6 (10.0-19.0); BLOOD UREA NITROGEN 19 mg/dL (6-24); CALCIUM 7.5 mg/dL (8.5-10.5); CHLORIDE 101 mMol/L (96-110); CO2 33 mMol/L (22-32); CREATININE 0.5 mg/dL (0.5-1.1); ESTIMATED GFR (MDRD EQUATION) > 60; MAGNESIUM 2.5 mg/dL (1.8-2.6); POTASSIUM 3.6 mMol/L (3.7-5.1); SODIUM 139 mMol/L (135-145)
[2016-08-26 03:40] LABS: EOSINOPHIL % 0.3 %; HEMOGLOBIN 10.8 g/dL (10.0-15.0); IMMATURE GRANULOCYTE # 0.1 K/uL (0.0-0.3); IMMATURE GRANULOCYTE % 0.7 %; LYMPHOCYTE # 1.1 K/uL (0.8-4.0); LYMPHOCYTE % 14.6 %; MCH 31.3 pg (27.0-34.0); MCHC 33.8 gm/dL (32.0-36.5); MCV 92.8 fl (83.0-98.0); MONOCYTE # 0.7 K/uL (0.0-1.0); MONOCYTE % 9.3 %; MPV 9.6 fl (9.4-12.4); NEUTROPHIL # (ANC) 5.7 K/uL (1.8-7.8); NEUTROPHIL % 75.1 %; NRBC % 0 /100WBC (0-0.00); PLATELET COUNT 110 K/uL (150-450); RBC 3.45 M/uL (3.50-5.50); RDW-CV 15.4 % (11.9-14.6); WBC 7.5 K/uL (4.0-11.0)
--- NOTE | 2016-08-26 04:52 | NUR ---
Significant Event: A/0X3.FORGETFUL. DROWSY MOST OF THE SHIFT. MAKE CONFUSED STATEMENTS THROUGHOUT THE SHIFT BUT IS EASILY REDIRECTED. DAUGHTER IN ROOM WITH PATIENT. RESTED IN BED ALL OF SHIFT.TURNED Q 2 HRS SIDE TO SIDE. AFEBRILE. VSS ON 2L. IV TO L) FA SL. CENTRAL LINE TO L) SUBCLAVIAN WITH D5 1/2 NS WITH 20 MEQ KCL AT TKO AND A DILUADID DIRECTOR SOFTWARE QUALITY ASSURANCE RUNNING. FLUSHES WITH GOOD BLOOD RETURN. DILUADID DIRECTOR SOFTWARE QUALITY ASSURANCE IS DEMAND ONLY. HAD 5 ATTEMPTS WTIH 4 DELIVERED. ALSO GAVE ULTRAM AROUND 2112. PATIENT WAS ABLE TO FIND RELIEF AND SLEEP MOST OF THE NIGHT. JEAN PRESENT WITH 800 OUT. NO BM THIS SHIFT. GAVE MOM. DIDNT EAT MUCH THIS SHIFT. ENCOURAGE MORE FLUIDS AND FOOD. DRESSINGS C/D/I. HAD 30 MLS OUT OF ALEXSANDER DRAIN. ENCOURAGE IS Q1 HOUR WHILE AWAKE. Follow up: CONTINUE WITH PLAN OF CARE.
--- NOTE | 2016-08-26 18:23 | NUR ---
REPOSITION Q 2 HRS. UP TO CHAIR W/ LIFT LATE AFTERNOON. FAMILY AT BEDSIDE. CONTINUE CLINICAL SAFETY MANAGER.
[2016-08-27 04:03] LABS: BLOOD UREA NITROGEN 15 mg/dL (6-24); CALCIUM 7.7 mg/dL (8.5-10.5); CHLORIDE 102 mMol/L (96-110); CO2 29 mMol/L (22-32); CREATININE 0.4 mg/dL (0.5-1.1); ESTIMATED GFR (MDRD EQUATION) > 60; MAGNESIUM 2.4 mg/dL (1.8-2.6); SODIUM 137 mMol/L (135-145)
--- NOTE | 2016-08-27 05:13 | NUR ---
Patient Alert, forgetful at times. Continues on NC 2-3L with o2 sats mid 90s. ETco2 mid 30s with AUTO HAULER dilaudid. No BM this shift. Follow up: Continue cares
--- NOTE | 2016-08-27 19:09 | NUR ---
PATIENT UP TO CHAIR W/ PHYSICAL THERAPY AND NURSE AID, HEAVY 2 ASSIST. TOTAL LIFT BACK TO BED AFTER LUNCH. SUPPOSITORY GIVEN FOR CONSTIPATION WITH NO RESULTS AT THIS TIME. 2L NC. CONTINUE BUTTONHOLER, PATIENT RATED PAIN 10/10 TWICE THIS SHIFT. ROXICODONE GIVEN X2 THIS SHIFT. PATIENT ADMITS TO BEING ANXIOUS ALSO. MEDICATION FOR ANXIETY PRIOR TO PHYSICAL THERAPY WOULD POSSIBLY BE BENEFICIAL. FAMILY AT BEDSIDE.
--- NOTE | 2016-08-28 05:18 | NUR ---
Significant Event:A/Ox3. Dilaudid VICE PRESIDENT OF PROCUREMENT 0.1mg demand only with 10 minute LO. Only 18 demands and 8 delivered. Ultram given at 1915. Roxicodone x2 2215 and 0200, Flexeril also given at 0200. Patient did have a hard time getting comfortable this shift repositioned often. Offered to get patient up to the side of the bed to dangle and she refused. Finally got some rest after 2nd dose of Daysi. Still no results post suppository. Tiffanie C/D/I. Continue to work with PT/OT. Follow up:GIRP when bed available.
--- NOTE | 2016-08-28 12:04 | NUR ---
Talked with Cherry this morning. She is going to review Naomie's information and see if she would be an appropriate [facility] canidate and then get back to me on when/if they will be able to accept her for admission. CM updated NAHID Elaine to this. CM will continue to follow and assist.
--- NOTE | 2016-08-28 16:23 | NUR ---
Significant Event: Alert, forgetful. Consistently rates pain 9-10/10 but patient appears to be much more comfortable than this morning. Dilaudid BAGGAGE CHECKER continues. Fentanyl patch started today and placed to R) upper chest, covered with tegaderm. O2 continues at 3L/NC. Up with PT today, repo q2h. Follow up:
[2016-08-29 02:34] LABS: ANION GAP 10.7 (10.0-19.0); BLOOD UREA NITROGEN 18 mg/dL (6-24); CALCIUM 7.9 mg/dL (8.5-10.5); CHLORIDE 100 mMol/L (96-110); CO2 29 mMol/L (22-32); CREATININE 0.5 mg/dL (0.5-1.1); ESTIMATED GFR (MDRD EQUATION) > 60; MAGNESIUM 2.3 mg/dL (1.8-2.6); POTASSIUM 3.7 mMol/L (3.7-5.1); SODIUM 136 mMol/L (135-145)
--- NOTE | 2016-08-29 05:14 | NUR ---
Significant Event:A/Ox3 but forgetful. Pain controlled much better over the last 24h. Dilaudid VALIDATION INTERN continues patient only had 1 demand and 1 delivery all night. Ultram and Daysi given x1 each. Will given 1 tab of ultram per family and patient request prior to shift change. BM x2 brown liquid with hard lumps. Weaned oxygen to 2L/NC. Repositioned q2h. Jj to DD with concentrated/cloudy urine. Poor oral intake noted. Follow up:Encourage fluids. D/C VALIDATION INTERN??
--- NOTE | 2016-08-29 08:07 | NUR ---
A - A/O X 3 BUT FORGETFUL. GLU 90, BUN/TRANSITIONS MANAGER RN 18/0.5. DIET: REGULAR W/ ENSURE BID. INTAKE REFUSED TO 50%. D - AT RISK W/ INADEQUATE ORAL INTAKE R/T DECREASED APPETITE AEB INTAKE RECORD. I - GOAL: 50% OR BETTER INTAKE BY NEXT REVIEW. M/E - WILL MONITOR INTAKE AND ASSIST NEEDED.
--- NOTE | 2016-08-29 15:55 | NUR ---
Social visit with Naomie and her daughter who was at bedside. Talked with them about discharge plans. We talked about [facility] vs [facility] for continued therapies and strenghtening with the goal being that Naomie be able to return back home when dismissed. We all agreed that G[facility] was just to much for her right now and that [facility] would be the better route to go at this point. Naomie states she has been there before and enjoyed it very much. Let them know that I would gather information and fax in a referral to Courtney at [facility] to see if they would be able to accept on if possible. Naomie and daughter were in agreement with this plan. Referral was faxed and also called in to Courtney at [facility]. Courtney reports that they have had Naomie before and really enjoyed her so they will review the information and get it infront of Dr. Sanchez to review and then get back to me on formal acceptance. At this time, she anticipates that they will be able to take her. Updated Naomie and daughter to this. Started her packet, printed orders, and no ID Screen is needed. I later got a call from Courtney at [facility], they will accept on if she is ready to dismiss at that time. I talked again with Naomie and daughter about this, they are fine with this plan. Let them know that most times we have people transfer in a personal car to [facility], but we will see what MD recommends and then go from there. Daughter is willing to transfer if needed. Sticky note left on the chart with the update that [facility] will accept on if medically cleared to do so at that time. I updated Dr. Grant to this, she is in agreement with the plan for SWB instead of GIRP. Updated NAHID Tran to the above and left a sticky note on the chart for Dr. Villa to see when he rounds in the morning. No other questions, needs or concerns. CM to continue to follow and assist. Plan for [facility] on if medically cleared to do so at that time.
--- NOTE | 2016-08-29 16:45 | NUR ---
Significant Event: Alert and oriented X 3. 2L O2 by nasal cannula. SBP 130's, 90's and 120's. HR 80's. 6 loose bowel movements this shift. Jj intact with 300 ml out. INGOT STRIPPER dc'd, ETCO2 still on. Up with full lift. Complaints of pain throughout shift. Fentanyl patch right chest. Tramadol given X 2, last given at 1543. Roxicodone given X 3, last given at 1126. Pleasant and cooperative with cares. Follow up:
--- NOTE | 2016-08-30 06:35 | NUR ---
Significant Event:No significant changes. Pain seemed well controlled all night until 0600 this morning, as patient awoke and called asking to be repositioned and for pain medications. Repositioned q2-3h. VSS weaned to 1L/NC with sats >92%. Follow up:Encourage oral intake, continue to work on pain management.
--- NOTE | 2016-08-30 11:48 | NUR ---
I spoke with Bren earlier today and wondering about the marcial and I explained I will find out. She will let me know what md will be accepting either Dr Morales or Dr Danielson. I did update Dr Grant and would like the ambulance to leave around 1130. I will set that up. Will continue to follow.
--- NOTE | 2016-08-30 14:37 | NUR ---
Bren carter and Dr Morales will accept pt tomorrow [phone]. I set up ambulance for 1130. WIll continue to follow.
--- NOTE | 2016-08-30 15:58 | NUR ---
I touched base with pt and family member that plan will be to go to the swingbed tomorrow at 1130. They agreed and yes all the rest of the family is aware.
--- NOTE | 2016-08-30 16:19 | NUR ---
Significant Event: Alert and oriented X 3. O2 at 1L by nasal cannula. Peripheral IV to left forearm, flushes well, no blood return. Edematous to left upper arm/elbow. Bruising to left elbow. Central line removed this shift. Tamadol given X 2, last given at 1504. Roxicodone given x 1 at 0901. Flexeril given before therapy at 1055. Patient stating pain is tolerable. Up with full lift, 2 assist. Jj to be romoved on 09/01/16 at 0500. Pleasant and cooperative with cares. Follow up: [facility] tomorrow by ambulance.
--- NOTE | 2016-08-31 04:26 | NUR ---
Significant events: Pt A/Ox3, forgetful and confused statements at times. VSS. Tramadol and mukesh x1. Repositioned frequently. Jj in place. Dressing to upper back CDI. Sternum open to air with gauze to upper portion, some drainage noted. Brace off while in bed. Heart hugger in place. Slept comfortably most of shift. To go to [facility] today.
[2016-08-31 07:24] LABS: BASOPHIL % 0.3 %; EOSINOPHIL # 0.1 K/uL (0.0-0.5); EOSINOPHIL % 2.1 %; HEMATOCRIT 28.5 % (33.0-46.0); HEMOGLOBIN 9.6 g/dL (10.0-15.0); IMMATURE GRANULOCYTE # 0.1 K/uL (0.0-0.3); IMMATURE GRANULOCYTE % 1.9 %; LYMPHOCYTE % 17.5 %; MCHC 33.7 gm/dL (32.0-36.5); MONOCYTE # 0.7 K/uL (0.0-1.0); MONOCYTE % 11.7 %; MPV 8.6 fl (9.4-12.4); NEUTROPHIL # (ANC) 3.9 K/uL (1.8-7.8); NEUTROPHIL % 66.5 %; NRBC % 0 /100WBC (0-0.00); PLATELET COUNT 115 K/uL (150-450); RDW-CV 14.7 % (11.9-14.6); WBC 5.8 K/uL (4.0-11.0)
[2016-08-31 07:39] LABS: ANION GAP 12.9 (10.0-19.0); BLOOD UREA NITROGEN 15 mg/dL (6-24); CALCIUM 7.9 mg/dL (8.5-10.5); CHLORIDE 101 mMol/L (96-110); CO2 29 mMol/L (22-32); CREATININE 0.5 mg/dL (0.5-1.1); ESTIMATED GFR (MDRD EQUATION) > 60; MAGNESIUM 2.3 mg/dL (1.8-2.6); POTASSIUM 3.9 mMol/L (3.7-5.1); SODIUM 139 mMol/L (135-145)
--- NOTE | 2016-08-31 12:20 | NUR ---
0945 Call down to EMS and talked with Ale to see if they still have an ambulance ready for Fostine to go to [facility] today. She states that she is working on it but will have crew, it just might be a bit later than 1130. I updated RN Asa to this so she was aware, also gave her the number for RN to RN report to be called prior to Fostine leaving. I talked with Naomie and daughter about going to [facility] today they were both in agreement with this plan. I faxed over discharge orders before she left and MD to report was called in by Dr. Cordero earlier this morning. 1145 Call from Ale in EMS that she was having to find a new crew to come and take Fostine to [facility] as the crew she had lined up was running late and wouldn't be here until 1430 or later. I updated Naomie, robbie and NAHID Asa to this. They were fine with waiting until another crew was found. 1215 Call from Ale, [facility] was in town and is able to come up and belt picker Fostine right now, so they will be up within the next few minutes. Updated RN Asa to this and she was goign to update daughter and Naomie. No other questions, needs or concerns. CM to continue to follow and assist. Plan for [facility] today. RN to RN report was given before Fostine left the building.
--- NOTE | 2016-08-31 17:45 | NUR ---
Significant Event: ALERT BUT DROWSY, NOT ORIENTED TO TIME, FORGETUL, HALLUCINATIONS, TALKS IN SLEEP AND DOES HAND ACTIONS. PLEASANT & COOPERATIVE WITH CARES. DAUGHTER PRESENT AT BEDSIDE REQUESTING PAIN PILLS FOR PATIENT. VSS, TMAX 100.0F, ON 1-2 O2 PER NC. RIGHT LEG FLACCID, ABLE TO WIGGLE TOES. FULL LIFT FOR TRANSFERS. DENIES NUMBNESS/TINGLING. IV REMOVED. JEAN IN PLACE 575 ML OUT. DC TO [facility] PER AMBULANCE. Follow up: REMOVED JEAN TOMORROW 09/01 THEN REINSERT IF VOIDING TRIAL FAILS, FOLLOW UP OUTPATIENT WITH UROLOGY.
== END 2016-08-31 13:12 | disposition swing bed (61) | DRG 453 ==
LOC: G3N 08-23 05:38 → GPCU 08-23 05:38 → GICU 08-23 05:38 → GPCU 08-24 17:54
PROVIDERS: Anesthesiology; Family Medicine; Internal Medicine; ADMIT Orthopaedic Surgery Orthopaedic Surgery of the Spine
PROC: 02HV33Z Insertion of Infusion Device into Superior Vena Cava, Percutaneous Approach (ICD-10-PCS; principal; 2016-08-23)
PROC: 0RG60A0 Fusion of Thoracic Vertebral Joint with Interbody Fusion Device, Anterior Approach, Anterior Column, Open Approach (ICD-10-PCS; principal; 2016-08-23)
PROC: 0P800ZZ Division of Sternum, Open Approach (ICD-10-PCS; principal; 2016-08-23)
PROC: 0RB90ZZ Excision of Thoracic Vertebral Disc, Open Approach (ICD-10-PCS; principal; 2016-08-23)
PROC: 0RG Upper Joints, Fusion (ICD-10-PCS; principal; 2016-08-23)
PROC: 03HY33Z Insertion of Infusion Device into Upper Artery, Percutaneous Approach (ICD-10-PCS; principal; 2016-08-23)
PROC: 0RG70Z1 (ICD-10-PCS; principal; 2016-08-23)
PROC: 30233K1 Transfusion of Nonautologous Frozen Plasma into Peripheral Vein, Percutaneous Approach (ICD-10-PCS; 2016-08-23)
PROC: 30233N1 Transfusion of Nonautologous Red Blood Cells into Peripheral Vein, Percutaneous Approach (ICD-10-PCS; 2016-08-23)
PROC: 30233R1 Transfusion of Nonautologous Platelets into Peripheral Vein, Percutaneous Approach (ICD-10-PCS; 2016-08-23)
PROC: 30233M1 Transfusion of Nonautologous Plasma Cryoprecipitate into Peripheral Vein, Percutaneous Approach (ICD-10-PCS; 2016-08-23)
PROC: 30233N1 Transfusion of Nonautologous Red Blood Cells into Peripheral Vein, Percutaneous Approach (ICD-10-PCS; 2016-08-24)
DX: M48.04 Spinal stenosis, thoracic region (principal); J96.01 Acute respiratory failure with hypoxia; G92 Toxic encephalopathy; G95.89 Other specified diseases of spinal cord; I95.9 Hypotension, unspecified; D69.6 Thrombocytopenia, unspecified; D62 Acute posthemorrhagic anemia; M51.04 Intervertebral disc disorders with myelopathy, thoracic region; J44.9 Chronic obstructive pulmonary disease, unspecified; J98.11 Atelectasis; M48.07 Spinal stenosis, lumbosacral region; M51.16 Intervertebral disc disorders with radiculopathy, lumbar region; M43.10 Spondylolisthesis, site unspecified; R26.81 Unsteadiness on feet; I10 Essential (primary) hypertension; R33.9 Retention of urine, unspecified; K59.00 Constipation, unspecified; M81.0 Age-related osteoporosis without current pathological fracture; G89.29 Other chronic pain; R53.1 Weakness; R41.0 Disorientation, unspecified; M15.9 Polyosteoarthritis, unspecified; R39.11 Hesitancy of micturition; Z89.021 Acquired absence of right finger(s); Z85.828 Personal history of other malignant neoplasm of skin; Z87.891 Personal history of nicotine dependence; Z86.718 Personal history of other venous thrombosis and embolism; Z96.641 Presence of right artificial hip joint; Z98.1 Arthrodesis status; Z79.82 Long term (current) use of aspirin
CPT/HCPCS: C1713; J0131; J1100; J1170; J1650; J2405; J3010; J3370; J3480; J7030; J7050; P9012; P9016; P9017; P9035; P9045